=== PATIENT | female | born 1980 ===

== ENCOUNTER 2023-11-20 01:56 | Emergency (ER) | payer BC, SELFPAY ==
[2023-11-20 01:59] VITALS: BP 152/90
[2023-11-20 02:31] VITALS: BMI 23.1
--- NOTE | 2023-11-20 02:34 | ED.GENMED ---
Addendum entered and electronically signed by Javier Manley DO 11/20/23 13:46:
Received radiology descrepency from Dr. Portillo. 1x3.5 cm calcification in right hemipelvis of uncertain etiology. I informed pt and recommended she f/u with her primary doctor.
Original Note:
History of Present Illness
<JOSE Mejia - Last Filed: 11/20/23 06:02>
General
Chief Complaint: Bowel Problem
Source: patient
Exam Limitations: none
Time Seen by Provider: 11/20/23 02:25
Travel History
Have you had any contact with someone who has COVID-19?: No
Do you have any symptoms of coronavirus? Fever > 100 degrees, chills, cough, shortness of breath, sore throat, loss of taste or smell, muscle aches, or headache?: No
History of Present Illness
History of Present Illness:
43 YO F with a PMH of OCD, anxiety, and constipation presenting here today for rectal pain after straining in attempt to have a BM x 2 hours. Pt reports this has happened in the past, but never as severe as it is now. Pt complains of nausea and
diaphoresis from straining. She states she was able to have a small BM tonight, but 'feels it in her bowel.' She rates her pain a 5/10. She did not take any medication to relieve the pain. Currently on Anafranil for OCD/anxiety.
Denies CP, SOB, and D. Denies abdominal pain. Denies rectal bleeding.
Denies cigarettes, drugs. Admits to rare alcohol use.
Past History
<JOSE Mejia - Last Filed: 11/20/23 06:02>
Social History
Tobacco: Non-smoker
Alcohol: Occasional
Drug: None
Review of Systems
<JOSE Mejia - Last Filed: 11/20/23 06:02>
Review of Systems
Allergies reviewed?: Yes
Constitutional: Reports no symptoms
EENT: Reports no symptoms
Respiratory: Reports no symptoms
Cardiac: Reports diaphoresis
ABD/GI: Reports nausea and pain
: Reports no symptoms
Musculoskeletal: Reports no symptoms
Skin: Reports no symptoms
Psychiatric: Reports depression and anxiety
Phy Exam
<JOSE Mejia - Last Filed: 11/20/23 06:02>
Physical Exam
Physical Exam:
Tachycardic; Breath sounds are equal B/L, Abdomen is soft, non-tender, non-distended with bowel sounds heard in all four quadrants
General Physical Exam
General Presentation: mild distress
General age: appears stated age
General Habitus: normal
General Mental: alert
Pulmonary Exam
Pulmonary Exam: lungs clear and no respiratory distress
Gastrointestinal Exam
Gastrointestinal Exam: normal bowel sounds, non tender, soft and non distended
Neurological Exam
Neurological Exam: alert and oriented x3
Course
<Jess Booth KUNAL - Last Filed: 11/20/23 06:02>
Orders/Labs/Results
Orders:
Orders
11/20/23 02:02
Electrocardiogram (*1) Urgent
Reason for Study: Tachycardia
EKG- Treatment ONCE
11/20/23 02:07
Glycerin [Glycerin Suppository Adult] 1 supp RECTAL NOW STA
CR Abdomen - 1 View Urgent
Comment:
Reason For Exam: abd pain
11/20/23 04:05
HCG, Urine Qualitative Screen Urgent
11/20/23 04:06
Urinalysis Reflex To Culture Urgent
Test Result ONCE
11/20/23 04:21
Enema- Treatment ONCE
Type: Milk of Molasses
Vital Signs
Initial and Last Documented VS:
Initial Vital Signs
Temp Pulse Resp BP Pulse Ox
97.5 F 158 25 152/90 98
11/20/23 01:59 11/20/23 01:59 11/20/23 01:59 11/20/23 01:59 11/20/23 01:59
Last Documented Vital Signs
Temp Pulse Resp BP Pulse Ox
97.5 F 158 25 152/90 98
11/20/23 01:59 11/20/23 01:59 11/20/23 01:59 11/20/23 01:59 11/20/23 01:59
<Javier Shirley, DO - Last Filed: 11/20/23 06:08>
Orders/Labs/Results
Orders:
Orders
11/20/23 02:02
Electrocardiogram (*1) Urgent
Reason for Study: Tachycardia
EKG- Treatment ONCE
11/20/23 02:07
Glycerin [Glycerin Suppository Adult] 1 supp RECTAL NOW STA
CR Abdomen - 1 View Urgent
Comment:
Reason For Exam: abd pain
11/20/23 04:05
HCG, Urine Qualitative Screen Urgent
11/20/23 04:06
Urinalysis Reflex To Culture Urgent
Test Result ONCE
11/20/23 04:21
Enema- Treatment ONCE
Type: Milk of Molasses
Vital Signs
Initial and Last Documented VS:
Initial Vital Signs
Temp Pulse Resp BP Pulse Ox
97.5 F 158 25 152/90 98
11/20/23 01:59 11/20/23 01:59 11/20/23 01:59 11/20/23 01:59 11/20/23 01:59
Last Documented Vital Signs
Temp Pulse Resp BP Pulse Ox
97.5 F 158 25 152/90 98
11/20/23 01:59 11/20/23 01:59 11/20/23 01:59 11/20/23 01:59 11/20/23 01:59
<JOSE Mejia - Last Filed: 11/20/23 06:02>
MDM/Problems Addressed
Differential Diagnosis Includes:
Constipation, Large bowel obstruction, Sigmoid volvulus
MDM/Problems Addressed:
Constipation x 2 hours
<JOSE Mejia - Last Filed: 11/20/23 06:02>
*Critical Care Note
Total Time (30-74mins, 75-104mins- exclusive of procedures): Not Applicable
<JOSE Mejia - Last Filed: 11/20/23 06:02>
Update Note
Update Note:
Went to the bathroom about 1 hour ago, slight straining, but able to get everything out, no spasm, feels like she has emptied her bowel completely
ED Attending Note
<JOSE Mejia - Last Filed: 11/20/23 06:02>
-
Portions of this chart may have been created with voice recognition software.� Occasional wrong word or��sound alike� substitutions may have occurred due to the inherent limitations of voice recognition software.
<Javier Shirley DO - Last Filed: 11/20/23 06:08>
ED Attending Note
Patient seen and examined by attending physician: Yes
ED Attending Note:
Pleasant 43-year-old female that presents with rectal and abdominal pain. She states that she has been struggling to have a bowel movement for the last 2 hours. She reports not being able to have a bowel movement. She states that she feels stool
in her bowel. Denies fever, chills, nausea or vomiting. Patient was seen in conjunction with the PA student. I have reviewed and agree with the history and treatment plan presented. On my independent physical exam, patient is awake, alert, and
oriented x3, minimal acute distress. Anxious affect. Good bowel sounds x 4 quadrants. Tenderness to palpation in the left lower quadrant. Moves all 4 extremities.
Patient had a glycerin suppository which helped her have a very small bowel movement. She did get a milk of molasses enema here in the emergency department and states that she had a very large bowel movement, emptying her bowels. We have observed
her for over an hour after her bowel movement and she has not had any spasms. She feels better and will be discharged home. Get a prescription for Colace stool softener now that she is moving her bowels.
Discharge Plan
Departure
Patient Disposition: Home (Routine Discharge)
Date of Disposition: 11/20/23
Time of Disposition: 06:02
Patient with high blood pressure during this ER visit?: No
Condition: Good
Covid-19: Not Applicable
Discharge Problem:
Constipation
Instructions: Constipation in adults, Fecal Impaction (DC), High-fiber diet
Prescriptions:
New
docusate sodium [Colace] 100 mg capsule
100 mg PO DAILY Qty: 20 0RF
Referrals:
Ambika Zavala PA-C [Family Provider] -
Activity Restrictions/Additional Instructions:
It was a pleasure meeting you and taking part in your care. We hope for your continued healing and wellness.
Please read discharge instructions in their entirety. However, they are for general education and may not describe your exact diagnosis at discharge. Information on your ER visit and medical conditions were discussed with you along with appropriate
follow up information...
If indicated, please take your medications as instructed and indicated on discharge paperwork.
Please schedule a follow up appointment as directed. Call to schedule an appointment
Please return to the emergency department with ANY change in, persisting, or worsening of symptoms. If any of your symptoms do not improve, or persist, or become more severe within 6-12 hours, please return to the emergency department for further
care.
Please return to the emergency department if you develop a headache, neck pain/stiffness, fever greater than 100.4F, chest pain, shortness of breath, persistent nausea, vomiting, slurred speech, difficulty walking, numbness/tingling, weakness, signs
of infection or any other symptoms that are worrisome to you.
If you have any questions or concerns please do not hesitate to call the Hospital at or E-mail me directly at [email or web address]
Interventions
Interventions:
*Risk Screen - Suicide Last Done: 11/20/23 01:59
*General Assessment Last Done: 11/20/23 02:30
*Neglect/Abuse Screening Last Done: 11/20/23 01:59
ED- Fall Risk Assessment Last Done: 11/20/23 02:33
MR-Yrtfin-Jyayftnoco Assessment Last Done: 11/20/23 02:34
ED- Cardiac Assessment Last Done: 11/20/23 02:34
Discharge Date and Time
Print Language: COLOMBIAN
[2023-11-20] MEDS: GLYCERIN SUPPOSITORY ADULT 1 SUPP RECTAL (02:40)
[2023-11-20 05:30] VITALS: BP 133/87
== END 2023-11-20 06:17 | disposition home or self-care (01) ==
LOC: EMR 01:56
PROVIDERS: EMERGENCY PHYSICIAN Student in an Organized Health Care Education/Training Program; FAMILY PHYSICIAN Physician Assistant Medical
DX: K59.00 Constipation, unspecified (principal); F42.9 Obsessive-compulsive disorder, unspecified; F41.9 Anxiety disorder, unspecified; I51.7 Cardiomegaly
CPT/HCPCS: 99283; 74018; 93005; 99282